=== PATIENT | male | born 1985 | race Two or more races ===

== ENCOUNTER 2019-04-22 05:25 | Day surgery (SDC) | payer OTHER ==
[~2019-04-22 05:25] MED LIST: VASOTEC2.5 MG PO; ZYLOPRIM300 MG PO
== END 2019-04-22 15:00 | disposition home or self-care (01) ==
LOC: CIR.AMB 05:25
DX: K43.6 Other and unspecified ventral hernia with obstruction, without gangrene (principal)

== ENCOUNTER 2024-04-29 09:02 | Inpatient (IN) | payer OTHER ==
[~2024-04-29] VITALS: Ht 185.4 cm; Wt 104.3 kg
[~2024-04-29 09:02] MED LIST changes: +MEDROLPACK PO
--- NOTE | 2024-04-29 09:11 | NUR ---
PACIENTE ALERTA Y ORIENTADO X 3. REFIERE DOLOR EN AREA DE LA BOCA DEL [place] Y ESPALDA LAMAR DESDE RAKESH. REFIERE KING YULISSA A BOFFIL LE INDICO PASAR POR ER POR POSIBLE PANCREATITIS.
[2024-04-29] MEDS ORDERED: FAMOTIDINE/PF 20 MG/2 ML VIAL IV PUSH ONE (10:15)
[2024-04-29] MEDS ORDERED: MEPERIDINE HCL/PF 25 MG/ML VIAL IV ONE (10:15)
--- NOTE | 2024-04-29 10:34 | NUR ---
PTE ALERTA Y ORIENTADO X3 SE LE ORIENTA SOBRE TX MEDICO LO CUAL REFIERE ENTENDER Y ACEPTAR SE LE REALIZAN MUESTRAS DE LAB BAJO MEDIDAS ASEPTICAS Y SE LE ADMINISTRA MEDICAMENTOS GUILLE ORDEN MEDICA
[2024-04-29 10:53] LABS: URINE APPEARANCE Clear; URINE BILIRRUBIN Moderate (NEGATIVE); URINE BLOOD Negative; URINE COLOR Dark Yellow; URINE GLUCOSE Negative (NEGATIVE); URINE LEUKOCYTE Trace; URINE NITRATE Negative; URINE PROTEIN Trace (NEGATIVE)
[2024-04-29 10:54] LABS: HEMATOCRIT 52.1 % (39.0-48.0); HEMOGLOBIN 17.6 g/dL (13-16.00); MEAN CELL VOLUME 86.8 fL (80.0-100.00); MEAN CORPUSCULAR HEMOGLOBIN 29.3 pg (27.00-32.0); MEAN CORPUSCULAR HGB CONC 33.7 g/dl (32.0-36.0); PLATELET COUNT 302 K/uL (150-450); RED BLOOD COUNT 6.01 M/uL (4.00-6.00); RED CELL DISTRIBUTION WIDTH 12.6 % (11.5-14.5)
[2024-04-29 10:56] LABS: URINE EPITHELIAL CELLS 2.5 uL (0.0-38.8); URINE RBC 19.7 uL (0.0-20.8); URINE WBC 1.8 uL (0.0-23.2)
[2024-04-29 11:35] LABS: BILIRUBIN TOTAL 6.44 mg/dL (0.3-1.2); BILIRUBIN,CONJUGATED 4.09 mg/dL (0.0-0.2); BILIRUBIN,UNCONJUGATED 2.35 mg/dL (0.0-0.6); CALCIUM 9.4 mg/dL (8.5-10.1); CREATININE SERUM 1.31 mg/dL (0.70-1.30); GFR 60.6; GLOBULINA 4.4 G/DL (2.4-3.5); POTASSIUM 4.32 mEq/L (3.5-5.1); TOTAL PROTEIN 8.4 gm/dL (6.4-8.2)
[2024-04-29 11:52] LABS: URINE BACTERIA 1.2 uL (0.0-1933); URINE KETONE 80 (NEGATIVE)
[2024-04-29 15:28] VITALS: BP 133/88; O2SAT 98
[2024-04-29] MEDS ORDERED: MEPERIDINE HCL 25 MG/ML AMPUL IV PRN (17:15)
[2024-04-29] MEDS ORDERED: ONDANSETRON HCL 4 MG in 0.9 % SODIUM CHLORIDE 50 ML IV PRN (20:15)
[2024-04-29] MEDS ORDERED: ACETAMINOPHEN 500 MG GEL..CAP PO PRN (20:15)
[2024-04-29] MEDS ORDERED: 0.9 % SODIUM CHLORIDE 1,000 ML IV SCH (20:15)
[2024-04-29] MEDS ORDERED: MEPERIDINE HCL/PF 50 MG/ML VIAL IM PRN (20:30)
[2024-04-29] MEDS ORDERED: PROMETHAZINE HCL 25 MG/ML AMPUL IM PRN (20:30)
[2024-04-29] MEDS ORDERED: KETOROLAC TROMETHAMINE 30 MG VIAL IV PRN ×2 (20:30→21:00)
[2024-04-29] MEDS ORDERED: PANTOPRAZOLE SODIUM 40 MG/VIAL VIAL IV SCH (21:00)
[2024-04-29 21:45] VITALS: BP 142/88
[2024-04-30 00:29] LABS: INR 1.13; PARTIAL THROMBOPLASTIN TIME 27.6 SECONDS (22.0-34.0); PROTHROMBIN TIME 12.2 SECONDS (9.0-11.5)
[2024-04-30 02:15] VITALS: BP 136/85; O2SAT 96
[2024-04-30 08:47] LABS: HEMATOCRIT 46.2 % (39.0-48.0); HEMOGLOBIN 15.6 g/dL (13-16.00); MEAN CORPUSCULAR HEMOGLOBIN 29.4 pg (27.00-32.0); MEAN CORPUSCULAR HGB CONC 33.8 g/dl (32.0-36.0); PLATELET COUNT 246 K/uL (150-450); RED BLOOD COUNT 5.31 M/uL (4.00-6.00); RED CELL DISTRIBUTION WIDTH 12.9 % (11.5-14.5)
[2024-04-30 08:48] VITALS: BP 144/88; O2SAT 97
[2024-04-30 09:56] LABS: ALBUMIN 3.5 gm/dL (3.4-5.0); BILIRUBIN TOTAL 1.98 mg/dL (0.3-1.2); BILIRUBIN,CONJUGATED 1.01 mg/dL (0.0-0.2); BILIRUBIN,UNCONJUGATED 0.97 mg/dL (0.0-0.6); C-REACTIVE PROTEIN 1.78 MG/DL (0.00-0.29); CALCIUM 8.9 mg/dL (8.5-10.1); CREATININE SERUM 1.17 mg/dL (0.70-1.30); GFR 69.04; POTASSIUM 4.88 mEq/L (3.5-5.1); TOTAL PROTEIN 6.7 gm/dL (6.4-8.2)
[2024-04-30] MEDS ORDERED: PIPERACILLIN/TAZOBACTAM SODIUM 4.5 GM in 0.9 % SODIUM CHLORIDE 100 ML IV SCH (12:00)
[2024-04-30] MEDS ORDERED: PANTOPRAZOLE SODIUM 40 MG/VIAL VIAL IV SCH (17:00)
[2024-04-30] MEDS ORDERED: GLUCAGON 1 MG VIAL IV ONE (19:30)
[2024-04-30] MEDS ORDERED: IOVERSOL 320 MG/ML - 50 ML VIAL IV ONE (19:30)
[2024-04-30 22:45] VITALS: BP 163/102
[2024-05-01 02:53] VITALS: BP 115/74; O2SAT 98
[2024-05-01 09:06] VITALS: BP 129/74; O2SAT 96
[2024-05-01] MEDS ORDERED: SODIUM CHLORIDE 0.45 % 1,000 ML IV SCH (09:45)
[2024-05-01] MEDS ORDERED: MORPHINE SULFATE 4 MG/ML CARTRIDGE IV PRN ×2 (09:45)
[2024-05-01] MEDS ORDERED: MORPHINE SULFATE 4 MG/ML VIAL IV ONE ×2 (15:55→16:25)
[2024-05-01 21:08] VITALS: BP 131/85; O2SAT 97
[2024-05-02 02:59] VITALS: BP 120/82; O2SAT 96
[2024-05-02 06:09] LABS: HEMATOCRIT 41.7 % (39.0-48.0); HEMOGLOBIN 14.2 g/dL (13-16.00); MEAN CORPUSCULAR HEMOGLOBIN 29.6 pg (27.00-32.0); PLATELET COUNT 221 K/uL (150-450); RED CELL DISTRIBUTION WIDTH 12.5 % (11.5-14.5)
[2024-05-02 06:37] LABS: ALBUMIN 3.2 gm/dL (3.4-5.0); BILIRUBIN TOTAL 1.32 mg/dL (0.3-1.2); BILIRUBIN,CONJUGATED 0.35 mg/dL (0.0-0.2); BILIRUBIN,UNCONJUGATED 0.97 mg/dL (0.0-0.6); CALCIUM 8.3 mg/dL (8.5-10.1); CREATININE SERUM 1.2 mg/dL (0.70-1.30); GFR 67.06; GLOBULINA 3.1 G/DL (2.4-3.5); PHOSPHOROUS 4.7 mg/dL (2.5-4.9); POTASSIUM 4.51 mEq/L (3.5-5.1); TOTAL PROTEIN 6.3 gm/dL (6.4-8.2)
[2024-05-02 06:54] LABS: C-REACTIVE PROTEIN 1.29 MG/DL (0.00-0.29)
[2024-05-02 10:23] VITALS: BP 106/68; O2SAT 94
[2024-05-02] MEDS ORDERED: AMOX-CLAV 875-1 EACH PO (13:56)
[2024-05-02] MEDS ORDERED: MUPIROCIN22 GM TOP (13:57)
[2024-05-02] MEDS ORDERED: TRAM1TAB98 PO (13:58)
[2024-05-02] MEDS ORDERED: PROTONIX40 MG PO (13:59)
== END 2024-05-02 14:15 | disposition home or self-care (01) | DRG 418 ==
LOC: ER 09:04 → SEC-K 13:10 → MEDJ 13:10
PROVIDERS: Emergency Medicine; General Practice; Internal Medicine Infectious Disease; Surgery; ADMIT Internal Medicine; ATTEND Internal Medicine
PROC: BW40ZZZ Ultrasonography of Abdomen (ICD-10-PCS; 2024-04-29)
PROC: 0DJ08ZZ Inspection of Upper Intestinal Tract, Via Natural or Artificial Opening Endoscopic (ICD-10-PCS; 2024-04-30)
PROC: 0FT44ZZ Resection of Gallbladder, Percutaneous Endoscopic Approach (ICD-10-PCS; principal; 2024-05-01 17:00)
DX: K80.66 Calculus of gallbladder and bile duct with acute and chronic cholecystitis without obstruction (principal); R17 Unspecified jaundice